=== PATIENT | female | born 1945 | race Caucasian/White ===

== ENCOUNTER → 2016-04-29 | Outpatient (CLI) | payer OTHER ==
[~2016-04-29] MED LIST: ADVIN25050 INH; ALBU1.257 NEB; ALPHTAB4 PO; BENZ100C7 PO; BIOF500C2 PO; CALC1CHW47 PO; CETI10TA84 PO; FISHOIL PO; GABA1CAP PO; GFNSR600 PO; LISI10TA PO; MULT1CHW39 PO; NEBMAC; OMEGCAP2 PO; OMEP40CA36 PO; OMEP40CA41 PO; ONE A DAY GUMMIES PO; PRED10TA PO; [UNRECOGNIZED DRUG - OTHER] PO; potassium gluconate PO
--- NOTE | 2016-04-30 13:16 | MAMMOGRAPHY REPORT ---
BILATERAL DIGITAL SCREENING MAMMOGRAM WITH CAD: 04/29/2016 TECHNIQUE: Current study was also evaluated with a Computer Aided Detection (CAD) system. Bilatera l CC and MLO views were obtained. COMPARISON: Comparison is made to exams dated: 04/29/2015 mammogram, 03/30/2013 mammogram, 04/05/2014 ma mmogram, 03/24/2011 mammogram, 03/29/2012 mammogram, and 03/21/2010 mammogram - [facility] nter. BREAST COMPOSITION: The tissue of both breasts is heterogeneously dense, which may obscure small ma sses. FINDINGS: There is a 10 mm asymmetry seen within the right lateral breast at approximately 9 to 10: 00, for which spot compression tomosynthesis views and possible breast ultrasound are recommended fo r further evaluation. The remainder of both breasts demonstrate no suspicious masses, calcifications, or areas of architec tural distortion. Small benign-appearing masses are again noted scattered within both breasts, whic h are considered benign given the multiplicity and bilaterality and likely represent cysts. A biops y marker clip is again noted in the right medial breast. IMPRESSION: ACR BI-RADS CATEGORY 0: INCOMPLETE EVALUATION: NEED ADDITIONAL IMAGING EVALUATION Right lateral breast asymmetry, for which additional imaging evaluation is recommended. The patient will be called to schedule an appointment. Approximately 10% of breast cancers are not detected with mammography. A negative mammographic repor t should not delay biopsy if a clinically suggestive mass is present. Lucie Oliveira M.D. /:04/29/2016 16:48:30 Marketing Development Specialist: Martine TANG(Judy)(M), [facility] letter sent: Addl Imaging 0 BI-RADS Code: ACR BI-RADS Category 0: Incomplete Evaluation: Need Additional Imaging Evaluation
== END | disposition home or self-care (01) ==
LOC: C.MAMM 09:11
PROVIDERS: ATTEND Internal Medicine
DX: Z12.31 Encounter for screening mammogram for malignant neoplasm of breast (principal); N64.9 Disorder of breast, unspecified

== ENCOUNTER 2016-05-03 11:01 | Inpatient (IN) | payer OTHER ==
[~2016-05-03] VITALS: Ht 162.6 cm; Wt 75.4 kg
[~2016-05-03 11:01] MED LIST changes: -ADVIN25050 INH; -ALBU1.257 NEB; -BENZ100C7 PO; -BIOF500C2 PO; -CALC1CHW47 PO; -CETI10TA84 PO; -GABA1CAP PO; -GFNSR600 PO; -MULT1CHW39 PO; -NEBMAC; -OMEGCAP2 PO; -OMEP40CA41 PO; -PRED10TA PO
[2016-05-03] MEDS ORDERED: KETOROLAC TROMETHAMINE 30 MG/ML VIAL IV STA (11:24)
[2016-05-03] MEDS ORDERED: SODIUM CHLORIDE 0.9% 1000ML 1,000 ML IV STA (11:24)
[2016-05-03] MEDS ORDERED: ALBUT/IPRATROP 3MG/0.5MG NEB 3 ML VIAL INH STA (11:24)
[2016-05-03 11:44] LABS: BASO % 0.6 %; BASO ABS # 0.03 K/uL (0-0.2); COMPLETE YES; EOS % 0.6 %; HEMATOCRIT 44.2 % (37-47); IG% 0.2 %; LYMPH % 22.4 %; LYMPH ABS # 1.15 K/uL (1.2-3.4); MEAN CELL VOLUME 89.1 fL (80-100); MEAN CORPUSCULAR HEMOGLOBIN 31.7 pg (25-34); MEAN CORPUSCULAR HGB CONC 35.5 g/dl (32-36); MEAN PLATELET VOLUME 9.2 fL (7.4-10.4); MONO % 16.2 %; PLATELET COUNT 184 K/uL (130-400); RED BLOOD COUNT 4.96 M/uL (4.2-5.4); WHITE BLOOD COUNT 5.13 K/uL (4.8-10.8)
--- NOTE | 2016-05-03 12:03 | DIAGNOSTIC IMAGING REPORT ---
SINGLE VIEW CHEST CLINICAL HISTORY: Atypical chest pain. FINDINGS: An AP, portable, upright chest radiograph is compared to study dated 02/08/2014 and correlated with chest CT dated 07/23/2010. A 2-lead cardiac pacemaker is unchanged in position and partially obscures the left mid chest. The heart is enlarged and there is atherosclerotic calcification of the thoracic aorta. The pulmonary vasculature is noncongested. Chronic interstitial thickening is unchanged. There are scattered calcified granulomas. No airspace consolidation, large pleural effusion, or pneumothorax is seen. The skeletal structures are osteopenic. The bony thorax is grossly intact. IMPRESSION: 1. Cardiomegaly and cardiac pacemaker. There is no radiographic evidence of congestive failure. 2. No airspace consolidation or pleural effusion is identified. Electronically signed by: Joshua Jensen M.D. 05/03/2016 12:02 PM Dictated Date/Time: 05/03/2016 12:00 PM
[2016-05-03] MEDS ORDERED: BIOF500C2 PO (12:22)
[2016-05-03] MEDS ORDERED: OMEP40CA41 PO (12:22)
[2016-05-03] MEDS ORDERED: OMEGCAP2 PO (12:22)
[2016-05-03] MEDS ORDERED: CALC1CHW47 PO (12:24)
[2016-05-03] MEDS ORDERED: MULT1CHW39 PO (12:24)
[2016-05-03 12:32] LABS: ALKALINE PHOSPHATASE 90 U/L (45-117); ALT/SGPT 42 U/L (12-78); AST/SGOT 49 U/L (15-37); BLOOD UREA NITROGEN 22 mg/dl (7-18); BUN/CREATININE RATIO 21.8 (10-20); CALCIUM 8.9 mg/dl (8.5-10.1); CARBON DIOXIDE 27 mmol/L (21-32); CHLORIDE 103 mmol/L (98-107); CKMB/CK RATIO 0.5 (0-3.0); GLUCOSE 112 mg/dl (70-99); POTASSIUM 3.7 mmol/L (3.5-5.1); SODIUM 139 mmol/L (136-145)
[2016-05-03 12:48] VITALS: PULSE 91; O2SAT 92
[2016-05-03] MEDS ORDERED: ALBUT/IPRATROP 3MG/0.5MG NEB 3 ML VIAL INH ONE (13:00)
--- NOTE | 2016-05-03 14:56 | EMERGENCY ROOM VISIT NOTE ---
ED Visit Note First contact with patient: 11:08 I saw this patient in conjunction with Alexey Arauz PA-C. I agree with his decision-making and treatment plan. The patient was hypoxic with an O2 saturation of 88%. She was placed on supplemental O2. She will be evaluated for further inpatient care.
[2016-05-03] MEDS ORDERED: HydrALAZINE HCL 20 MG/ML VIAL IV PRN (15:15)
[2016-05-03] MEDS ORDERED: ONDANSETRON INJ 2 MG/ML 2 ML VIAL IV PRN (15:15)
[2016-05-03] MEDS ORDERED: ACETAMINOPHEN 325 MG TAB PO PRN (15:15)
[2016-05-03] MEDS ORDERED: ALBUT/IPRATROP 3MG/0.5MG NEB 3 ML VIAL INH PRN (15:15)
[2016-05-03] MEDS ORDERED: MAGNESIUM HYDROXIDE SUSP 30 ML UDC PO PRN (15:15)
[2016-05-03] MEDS ORDERED: NITROGLYCERIN 0.4 MG SL PER TAB CHARGE SL PRN (15:15)
[2016-05-03] MEDS ORDERED: OPTIRAY 320 IV PRN (15:30)
[2016-05-03 15:57] VITALS: Ht 162.6 cm; Wt 75.4 kg
--- NOTE | 2016-05-03 16:01 | HISTORY & PHYSICAL EXAMINATION ---
DATE OF ADMISSION: 05/03/2016 CHIEF COMPLAINT: Coughing. ADMITTING DIAGNOSIS: Respiratory failure with hypoxia. HISTORY OF PRESENT ILLNESS: Ms. Sanchez is a 71-year-old female patient of Dr. Tripathi's who typically is generally healthy. She does suffer from some occasional bronchospasm. The patient has a history of V-tach and second-degree heart block followed by Dr. Elizabeth with a pacemaker implanted. Over the last 4 days, the patient has had a persistent nonproductive cough. She said she may have had some sinus symptoms associated with it, has been attempting over the counter sinus medications to help with this. The patient did contact Dr. Tripathi. The patient states that she does not bring up any mucus. She has not had any fevers. What really made her come to the hospital was she had acute coughing spell over the night, which was associated with some pain with the coughing in her chest. The patient denies any other symptoms such as fevers, sore throat, chest pain not associated with coughing, diaphoresis, shortness of breath not associated with coughing. In the Emergency Department, the patient had significant abnormal lung sounds on exam with wheezing in the bilateral lower lobes. She was 88% on room air. She did receive an hour long neb and remained persistently hypoxic on room air, according to the physician's marketing assistant retail division in the Emergency Room, although this is not documented in the vital signs. Upon my evaluation, she had a hoarse raspy voice. She had a resting tachycardia at 120, but she did receive her hour long neb and she had a nonproductive cough during my visit. PAST MEDICAL HISTORY: Is for the nonsustained V-tach second degree AV block followed by Dr. Elizabeth with a permanent pacemaker 2 lead, placed in September 2011. She has hypertension, dyslipidemia, benign positional vertigo which has not been an issue, previous history of [place] and history of bronchospasm. MEDICATIONS: Include calcium 500 a day, fish oil 2400 a day, lisinopril 10 a day, meclizine as needed, multivite once a day, omeprazole 40 a day and Proventil HFA, although she has forgotten to try it during these last few days when she has had her bronchospasm. Additionally noted about medications the fact that her lisinopril has been one of her medicines for almost 25 years and has not been associated with coughing. 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 She is . FAMILY HISTORY: Pancreatic cancer and coronary artery disease. REVIEW OF SYSTEMS: Ten systems were reviewed and are negative. The only other exception is the fact that she about a month ago had some bilateral leg pain after standing on concrete for a prolonged period of time. She has no lower extremity swelling, though right was worse than the left, but she did have, it was bilateral. PHYSICAL EXAMINATION: GENERAL: She is pleasant. VITAL SIGNS: Her temperature is 37.4, heart rate is 90-119, respiratory rate 20, BP 131/75, O2 sat as mentioned 88 on room air, 94 on 5 liters. HEENT: PERRL, EOMI. Oropharynx is without exudates or enlarged tonsils. NECK: Without lymphadenopathy. Trachea is midline. HEART: Tachycardic, regular, no murmurs. LUNGS: Have bibasilar rhonchi and wheezes. There is no focal air loss. SPINE: Nontender, no CV angle tenderness. ABDOMEN: Normoactive bowel sounds, soft, nontender, nondistended. EXTREMITIES: Without cyanosis, clubbing or edema. NEUROLOGICALLY: She is awake, alert and appropriate. Cranial nerves II through XII are intact. Equal symmetrical strength and sensation in upper and lower extremities. SKIN: Without lesions, growths, bruises or bleeding. LABORATORY DATA: Has white count of 5, H\T\H 15 and 44, platelet count 184, BUN and creatinine 22 and 1.0, bicarbonate 27. LFTs are normal and cardiac enzymes are normal. Chest x-ray shows no infiltrates and EKG shows a paced tachycardic rhythm. ASSESSMENT: A 71-year-old female here with acute hypoxic respiratory failure, likely asthmatic or bronchospastic type illness, hypoxia and tachycardia. PLAN: The patient will have CTA to rule out pulmonary embolism as one possible etiology other than that she will be treated with intravenous steroids, Solu-Medrol 40 q. 12 hours, and DuoNeb q.i.d. and q. 2 hours p.r.n. For her hypertension initially, we will continue her lisinopril with p.r.n. hydralazine. As this may be related with the tachyarrhythmia, we will interrogate her pacemaker and consult Dr. Elizabeth to evaluate the interrogated rhythms. DVT prevention will be enoxaparin unless her CT angiogram is abnormal. The patient is a full code.
--- NOTE | 2016-05-03 16:35 | DIAGNOSTIC IMAGING REPORT ---
CT ANGIOGRAM OF THE CHEST CLINICAL HISTORY: Atypical chest pain. COMPARISON STUDY: Chest CT dated 07/23/2010. Chest x-ray dated 05/03/2016. TECHNIQUE: Following the IV administration of 93 cc of Optiray 320, CT angiogram of the chest was performed from the upper abdomen to the thoracic inlet utilizing the pulmonary embolus protocol. Images are reviewed in the axial, sagittal, and coronal planes. 3-D MIPS images are created and assessed. IV contrast was administered without complication. CT DOSE: 268.54 mGy.cm FINDINGS: Thyroid: Imaged portions of the thyroid gland are normal in size and attenuation. Thoracic aorta: There is mild atherosclerotic calcification of the thoracic aorta is normal in caliber, which and demonstrates bovine variant arch anatomy. No dissection is seen. Pulmonary vasculature: The pulmonary trunk is normal in caliber. There are no filling defects identified in main, lobar, or segmental pulmonary branches to suggest pulmonary embolus. Heart: A 2-lead cardiac pacemaker is present in the left chest wall. The heart is mildly enlarged and without pericardial effusion. There are coronary artery calcifications. Lungs and pleural spaces: Evaluation of lung parenchyma is modestly degraded by respiratory motion artifact. There is no airspace consolidation or pleural effusion. Numerous calcified granulomas are identified. The trachea and central airways are clear. Mediastinum: There is no mediastinal lymphadenopathy. There are calcified mediastinal lymph nodes. Ofelia: There are calcified hilar lymph nodes. No hilar adenopathy is seen. Axillae: There is no axillary lymphadenopathy. 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 This has not significant change from 2011. 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 There are calcified hepatic and splenic granulomas. Hepatic steatosis is observed. Fatty sparing is seen adjacent to gallbladder fossa. Skeletal structures: The skeletal structures are osteopenic. No lytic or blastic bony lesions are seen. Degenerative change is noted in the thoracic spine and shoulders. IMPRESSION: 1. There is no evidence of pulmonary embolus in the main, lobar, or segmental pulmonary arteries. 2. The lungs are clear. 3. Mild cardiac enlargement and cardiac pacemaker. 4. Hepatic steatosis. 5. 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 Electronically signed by: Joshua Jensen M.D. 05/03/2016 4:33 PM Dictated Date/Time: 05/03/2016 4:27 PM
[2016-05-03 17:00] VITALS: BP 169/71; PULSE 51; TEMP 37.1; O2SAT 97
[2016-05-03] MEDS: METHYLPREDNISOLONE IV 40 MG in SYRINGE 0 ML IV SCH (17:05)
[2016-05-03 17:10] LABS: INR 1.1 (0.9-1.1); PROTHROMBIN TIME (PATIENT) 11.3 SECONDS (9.0-12.0)
[2016-05-03 19:35] VITALS: BP 159/90; PULSE 94; TEMP 37.3; O2SAT 93
[2016-05-03 20:00] VITALS: O2SAT 98
--- NOTE | 2016-05-03 20:10 | EMERGENCY ROOM VISIT NOTE ---
ED Visit Note First contact with patient: 11:08 Chief Complaint: Cough and chest tightness. History of Present Illness: Ms. Sanchez is a 71 year-old white female who ambulates into the ED complaining of chest cough and chest tightness. Historically patient reports she has a history of a implanted pacemaker due to heart block and bronchitis. She denies personal history of heart disease but does report that her father requiring quadruple bypass. Patient reports a graduate onset of a nonproductive cough that started approximately 4 days ago. Since that time his pain has gradually increased in intensity and frequency. 3 days ago she reports she started developing rib pain under her right breast with her cough and she took ibuprofen and the discomfort subsequently resolved. This morning she reports she was woken up from sleep with a severe coughing episode at approximately 4 AM, approximately 6 hours ago, and after the coughing episode she developed a midsternal chest tightness. Since that time the tightness has been constant. She rates her baseline rate at 4/10. Her pain worsens with cough and deep inspiration and becomes rated 8/10. Tightness is nonradiating. Pain that started approximately hours ago. She has not identified any other aggravating or alleviating factors related to her discomfort. She has not taken any medication since the onset of her discomfort. Associated with her cough she reports she has been having chills and diaphoresis, intermittent wheezing, dyspnea on exertion. Patient denies skin eruptions, skin color changes, upper respiratory tract symptoms, hemoptysis, orthopnea, dependent edema, previous clots, claudication, cramping, recent surgery/inactivity/extended travel, abdominal pain, nausea, vomiting, diarrhea, constipation, rectal bleeding, black/tarry stools, urinary symptoms, back/flank pain. Review of Systems: As noted above in history of present illness. All body systems were reviewed and found to be negative as noted above. Past Medical History: As previously noted, hypertension, dyslipidemia. Current Medications: Medications Dose Route/Sig Max Daily Dose Days Date Category Multivitamin Gummies Wome (Multiple Vitamins W/ Minerals) 1 Chw Chw 2 Tab PO DAILY 05/03/16 Reported Calcium Gummies (Calcium & Phosphorus W/ Vitami) 1 Chw Chw 1 Tab PO DAILY 05/03/16 Reported Vitamin C (Bioflavonoid Products) 1 Chw Chw 1 Tab PO DAILY 05/03/16 Reported Fish Oil (Goldvein-3 Fatty Acids) 1 Cap Cap 3 Cap PO DAILY 05/03/16 Reported Prilosec (Omeprazole) 40 Mg Cap 40 Mg PO DAILY 05/03/16 Reported [One A Day Gummies] 2 PO DAILY 04/28/12 Reported Prinivil (Lisinopril) 10 Mg Tab 10 Mg PO DAILY 04/12/10 Reported Allergies to Medications: Codeine. Social History: Patient is not currently employed; she feels safe in her home environment; she denies tobacco use. Physical Examination: Vital Signs: Date Time Temp Pulse Resp B/P Pulse Ox O2 Delivery O2 Flow Rate FiO2 05/03/16 15:00 112 20 128/80 94 Nasal Cannula 3.0 05/03/16 14:03 119 20 131/57 94 Mask 5.0 05/03/16 12:56 96 20 155/70 96 Mask 5.0 05/03/16 12:48 91 16 92 Nasal Cannula 2.0 05/03/16 12:18 100 05/03/16 11:44 88 Room Air 05/03/16 11:34 95 Room Air 05/03/16 11:25 109 05/03/16 11:04 37.4 65 22 159/82 91 Room Air GENERAL: 71-year-old female in mild to moderate distress due to cough, nontoxic- appearing, afebrile and hemodynamically stable. NEUROLOGICAL: Awake, alert and oriented to person, place and time. Answering questions appropriately and following commands. Normal gait. Good hand eye coordination. SKIN: Warm, dry and pink. No soft tissue eruptions or trauma noted. HEENT: Atraumatic and normocephalic. PERRLA. Sclera white and conjunctiva pink. Oral cavity moist and pink. Pharynx is nonerythematous or edematous. Speech normal. No lymphadenopathy. Trachea midline. No jugular venous distention. No carotid bruits. BACK: No tenderness over the bony spine. No CVA tenderness. THORAX: Lungs sounds are clear to auscultation and equal bilaterally with symmetrical chest wall. No wheezing, rales or rhonchi. No crepitus, tenderness , subcutaneous air or deformities noted. HEART: Regular rate and rhythm. No gallops, rubs or murmurs are appreciated. No lifts, heaves or thrills. PMI is not displaced. ABDOMEN: Flat, soft and nontender. Positive bowel sounds in all quadrants. No guarding, rigidity or organomegaly. EXTREMITIES: Moves all extremities well on command and with purpose. All distal neurovascular statuses are intact and equal bilaterally. No dependent edema or calf tenderness/cords. ED Course: Patient is assessed as noted above. Laboratory Testing: Test 05/03/16 11:30 Range/Units White Blood Count 5.13 4.8-10.8 K/uL Red Blood Count 4.96 4.2-5.4 M/uL Hemoglobin 15.7 12.0-16.0 g/dL Hematocrit 44.2 37-47 % Mean Corpuscular Volume 89.1 80-100 fL Mean Corpuscular Hemoglobin 31.7 25-34 pg Mean Corpuscular Hemoglobin Concent 35.5 32-36 g/dl Platelet Count 184 130-400 K/uL Mean Platelet Volume 9.2 7.4-10.4 fL Neutrophils (%) (Auto) 60.0 % Lymphocytes (%) (Auto) 22.4 % Monocytes (%) (Auto) 16.2 % Eosinophils (%) (Auto) 0.6 % Basophils (%) (Auto) 0.6 % Neutrophils # (Auto) 3.08 1.4-6.5 K/uL Lymphocytes # (Auto) 1.15 1.2-3.4 K/uL Monocytes # (Auto) 0.83 0.11-0.59 K/uL Eosinophils # (Auto) 0.03 0-0.5 K/uL Basophils # (Auto) 0.03 0-0.2 K/uL RDW Standard Deviation 40.3 36.4-46.3 fL RDW Coefficient of Variation 12.5 11.5-14.5 % Immature Granulocyte % (Auto) 0.2 % Immature Granulocyte # (Auto) 0.01 0.00-0.02 K/uL Sodium Level 139 136-145 mmol/L Potassium Level 3.7 3.5-5.1 mmol/L Chloride Level 103 98-107 mmol/L Carbon Dioxide Level 27 21-32 mmol/L Anion Gap 9.0 3-11 mmol/L Blood Urea Nitrogen 22 7-18 mg/dl Creatinine 1.00 0.60-1.20 mg/dl Est Creatinine Clear Calc Drug Dose 53.0 ml/min Estimated GFR () 66.6 Estimated GFR (Non- 57.4 BUN/Creatinine Ratio 21.8 10-20 Random Glucose 112 70-99 mg/dl Calcium Level 8.9 8.5-10.1 mg/dl Total Bilirubin 0.4 0.2-1 mg/dl Direct Bilirubin 0-0.2 mg/dl Aspartate Amino Transf (AST/SGOT) 49 15-37 U/L Alanine Aminotransferase (ALT/SGPT) 42 12-78 U/L Alkaline Phosphatase 90 45-117 U/L Total Creatine Kinase 154 26-192 U/L Creatine Kinase MB 0.7 0.5-3.6 ng/ml Creatine Kinase MB Ratio 0.5 0-3.0 Total Protein 8.0 6.4-8.2 gm/dl Albumin 3.5 3.4-5.0 gm/dl Lipase 216 73-393 U/L Chemistry Specimen Hemolysis Hepatitis C Antibody Screen NEG NEG Chest X-Rays: Were read by myself and the radiologist showing no acute failure, acute infiltrates, effusions or pneumothorax. Patient does have stable cardiomegaly and with pacemaker. EKG: Was read by myself and reviewed with Dr. Durant; shows an atrial sensed ventricular paced rhythm with a ventricular rate of 114 bpm. This was compared to a previous which was a sinus rhythm with a first-degree AV block. Patient was hydrated with normal saline and she received a regular and an hour- long albuterol/Atrovent nebulizer breathing treatment and 30 mg of Toradol IV for pain. Patient was reassessed multiple times during her stay in the emergency department. After her breathing treatments she had better air movement in her upper lung jolly bilaterally lower lung jolly remained diminished. I did not appreciate any wheezing, rales or rhonchi. Additionally after her breathing treatments her oxygen saturations decompensated from the low 90s to 86-88% on room air and she was subsequently placed on oxygen. Patient's case was reviewed with Dr. Durant; we agreed on diagnostic approach, treatment, disposition and plan. Patient's case was consulted with case management and Dr. Chris, [facility] for medical observation/admission. Patient was educated about tonight's findings. Clinical Impression: Acute respiratory failure. Hypoxia. Decision-Making: Initially my differential diagnosis I considered acute bronchitis, pneumonia, pulmonary embolism, acute coronary syndrome, congestive heart failure and other causes. Disposition and Plan: Patient be brought in the hospital by the [facility] hospitalist for medical observation/admission; please see their notes and orders for final disposition and plan.
[2016-05-03] MEDS: ALBUT/IPRATROP 3MG/0.5MG NEB 3 ML VIAL INH SCH (21:15)
[2016-05-03 21:16] VITALS: PULSE 97; O2SAT 95
[2016-05-03] MEDS: ENOXAPARIN 40 MG/0.4 ML SYR SC SCH (21:59)
[2016-05-04] VITALS (15 sets, daily range): BP systolic 146–171; BP diastolic 71–88; PULSE 82–99; TEMP 36.2–36.9; O2SAT 88–95
[2016-05-04 06:05] LABS: HEMATOCRIT 40.9 % (37-47); MEAN CELL VOLUME 91.7 fL (80-100); MEAN CORPUSCULAR HEMOGLOBIN 31.2 pg (25-34); MEAN PLATELET VOLUME 9.5 fL (7.4-10.4); PLATELET COUNT 192 K/uL (130-400); RED BLOOD COUNT 4.46 M/uL (4.2-5.4); WHITE BLOOD COUNT 3.45 K/uL (4.8-10.8)
[2016-05-04 06:35] LABS: BLOOD UREA NITROGEN 17 mg/dl (7-18); BUN/CREATININE RATIO 21.8 (10-20); CALCIUM 8.3 mg/dl (8.5-10.1); CARBON DIOXIDE 28 mmol/L (21-32); CHLORIDE 106 mmol/L (98-107); CREATININE 0.76 mg/dl (0.60-1.20); GLUCOSE 105 mg/dl (70-99); SODIUM 141 mmol/L (136-145)
[2016-05-04] MEDS: ALBUT/IPRATROP 3MG/0.5MG NEB 3 ML VIAL INH SCH ×4 (07:02→19:04)
[2016-05-04] MEDS ORDERED: INFLUENZA ADMINISTRATION CHARGE ONE (08:00)
[2016-05-04] MEDS ORDERED: PNEUMOCOCCAL POLYSACCHARIDES 25 MCG/0.5 ML VIAL/SYR IM. ONE (08:00)
[2016-05-04] MEDS ORDERED: PNEUMOCOCCAL ADMINISTRATION CHARGE ONE (08:00)
[2016-05-04] MEDS ORDERED: INFLUENZA VIRUS QUAD VACCINE 0.5 ML SYR IM. ONE (08:00)
[2016-05-04] MEDS: LISINOPRIL 10 MG TAB PO SCH (08:24)
[2016-05-04] MEDS: PANTOprazole SOD 40 MG TAB PO SCH (08:24)
[2016-05-04] MEDS: METHYLPREDNISOLONE IV 40 MG in SYRINGE 0 ML IV SCH ×2 (08:24→19:49)
--- NOTE | 2016-05-04 09:32 | Progress Note ---
Subjective Date of Service: May 04, 2016. (Shauna Ryder PA-C) Subjective Pt evaluation today including: conversation w/ patient, physical exam, chart review, lab review, review of studies, review of inpatient medication list Patient seen and evaluated. No acute events overnight. Patient reports marked improvement in audible wheezing and shortness of breath. Report she does have a rescue inhaler at home. However did not use that prior to presentation to the hospital. Reports last acute bronchitis was in 2013. Believe she may have a component of allergies as coughing seems to flare in fall and spring. Cough continues to be nonproductive but she denies nasal congestion, rhinorrhea , sore throat, or headache. She denies shortness of breath at rest and with exertion. Does not utilize home oxygen. (Shauna Ryder PA-C) Review of Systems Constitutional: No chills, No fever ENT: No nasal symptoms, No sore throat Respiratory: + cough, + wheezing, No dyspnea on exertion, No shortness of breath, No sputum Cardiac: No chest pain Abdomen: No constipation, No diarrhea, No nausea, No pain, No vomiting Musculoskeletal: No muscle pain, No swelling Female : No dysuria (Shauna Ryder PA-C) Medications Current Inpatient Medications Medications (Trade) Dose Ordered Sig/Emmett Route Start Time Stop Time Status Last Admin Dose Admin Enoxaparin Sodium (Lovenox Inj) 40 mg Q24H SC 05/03/16 21:00 06/02/16 20:59 05/03/16 21:59 40 MG Acetaminophen (Tylenol Tab) 650 mg Q4H PRN PO 05/03/16 15:15 06/02/16 15:14 Magnesium Hydroxide (Milk Of Magnesia Susp) 30 ml Q12H PRN PO 05/03/16 15:15 06/02/16 15:14 Ondansetron HCl (Zofran Inj) 4 mg Q6H PRN IV 05/03/16 15:15 06/02/16 15:14 Nitroglycerin (Nitrostat Tab) 0.4 mg UD PRN SL 05/03/16 15:15 06/02/16 15:14 Albuterol/ Ipratropium (Duoneb) 3 ml QIDR INH 05/03/16 16:00 06/02/16 15:59 05/04/16 07:02 3 ML Albuterol/ Ipratropium (Duoneb) 3 ml Q2H PRN INH 05/03/16 15:15 06/02/16 15:14 Pantoprazole Sodium (Protonix Tab) 40 mg DAILY PO 05/04/16 09:00 06/03/16 08:59 05/04/16 08:24 40 MG Hydralazine HCl (HydrALAZINE INJ) 10 mg Q4H PRN IV 05/03/16 15:15 06/02/16 15:14 Ioversol 125 ml 125 ml UD PRN IV 05/03/16 15:30 05/07/16 15:29 Methylprednisolone Sodium Succinate/ Syringe (Solu-Medrol IV/ Syringe) 0.64 ml @ 1.5 mls/min BID IV 05/03/16 16:30 06/02/16 16:29 05/04/16 08:24 1.5 MLS/MIN Lisinopril (Zestril Tab) 10 mg DAILY PO 05/04/16 09:00 06/03/16 08:59 05/04/16 08:24 10 MG Guaifenesin (Mucinex Contr Rel Tab) 1,200 mg Q12 PO 05/04/16 09:00 06/03/16 08:59 (Shauna Ryder, MONIKC) Objective Vital Signs Date Time Temp Pulse Resp B/P Pulse Ox O2 Delivery O2 Flow Rate FiO2 05/04/16 08:22 36.8 91 18 169/88 90 Nasal Cannula 05/04/16 07:02 90 18 92 Nasal Cannula 2.0 05/04/16 04:00 Nasal Cannula 05/04/16 03:57 36.6 82 18 146/71 95 Nasal Cannula 2.0 05/04/16 00:01 36.7 93 20 150/72 93 Nasal Cannula 2.0 05/03/16 23:59 Nasal Cannula 05/03/16 21:16 97 18 95 Nasal Cannula 2.0 05/03/16 20:00 98 Nasal Cannula 3.0 05/03/16 20:00 Nasal Cannula 3.0 98 05/03/16 19:35 37.3 94 16 159/90 93 Nasal Cannula 2.0 05/03/16 17:00 37.1 51 169/71 97 Nasal Cannula 3.0 05/03/16 16:00 110 20 130/75 94 Nasal Cannula 3.0 05/03/16 16:00 Nasal Cannula 3.0 05/03/16 15:57 Nasal Cannula 05/03/16 15:00 112 20 128/80 94 Nasal Cannula 3.0 05/03/16 14:03 119 20 131/57 94 Mask 5.0 05/03/16 12:56 96 20 155/70 96 Mask 5.0 05/03/16 12:48 91 16 92 Nasal Cannula 2.0 05/03/16 12:18 100 05/03/16 11:44 88 Room Air 05/03/16 11:34 95 Room Air 05/03/16 11:25 109 05/03/16 11:04 37.4 65 22 159/82 91 Room Air (Shauna Ryder, PA-C) Physical Exam General Appearance: WD/WN, no apparent distress Eyes: normal inspection, PERRL ENT: hearing grossly normal Neck: supple, no JVD, trachea midline Respiratory/Chest: no respiratory distress, no accessory muscle use, + wheezing (scattered wheezing on end of inspiration in all lung jolly bilat) Cardiovascular: regular rate, rhythm, no gallop, no murmur Abdomen: normal bowel sounds, non tender, soft Extremities: no pedal edema, no calf tenderness Neurologic/Psychiatric: alert, oriented x 3 Skin: normal color, warm/dry (Shauna Ryder, PA-C) Laboratory Results Last 24 Hours Test 05/03/16 11:30 05/03/16 16:50 05/03/16 21:09 05/04/16 05:10 White Blood Count 5.13 K/uL 3.45 K/uL Red Blood Count 4.96 M/uL 4.46 M/uL Hemoglobin 15.7 g/dL 13.9 g/dL Hematocrit 44.2 % 40.9 % Mean Corpuscular Volume 89.1 fL 91.7 fL Mean Corpuscular Hemoglobin 31.7 pg 31.2 pg Mean Corpuscular Hemoglobin Concent 35.5 g/dl 34.0 g/dl Platelet Count 184 K/uL 192 K/uL Mean Platelet Volume 9.2 fL 9.5 fL Neutrophils (%) (Auto) 60.0 % Lymphocytes (%) (Auto) 22.4 % Monocytes (%) (Auto) 16.2 % Eosinophils (%) (Auto) 0.6 % Basophils (%) (Auto) 0.6 % Neutrophils # (Auto) 3.08 K/uL Lymphocytes # (Auto) 1.15 K/uL Monocytes # (Auto) 0.83 K/uL Eosinophils # (Auto) 0.03 K/uL Basophils # (Auto) 0.03 K/uL RDW Standard Deviation 40.3 fL 42.0 fL RDW Coefficient of Variation 12.5 % 12.5 % Immature Granulocyte % (Auto) 0.2 % Immature Granulocyte # (Auto) 0.01 K/uL Sodium Level 139 mmol/L 141 mmol/L Potassium Level 3.7 mmol/L 4.0 mmol/L Chloride Level 103 mmol/L 106 mmol/L Carbon Dioxide Level 27 mmol/L 28 mmol/L Anion Gap 9.0 mmol/L 7.0 mmol/L Blood Urea Nitrogen 22 mg/dl 17 mg/dl Creatinine 1.00 mg/dl 0.76 mg/dl Est Creatinine Clear Calc Drug Dose 53.0 ml/min 69.7 ml/min Estimated GFR () 66.6 92.8 Estimated GFR (Non- 57.4 80.0 BUN/Creatinine Ratio 21.8 21.8 Random Glucose 112 mg/dl 105 mg/dl Calcium Level 8.9 mg/dl 8.3 mg/dl Total Bilirubin 0.4 mg/dl Direct Bilirubin mg/dl Aspartate Amino Transf (AST/SGOT) 49 U/L Alanine Aminotransferase (ALT/SGPT) 42 U/L Alkaline Phosphatase 90 U/L Total Creatine Kinase 154 U/L Creatine Kinase MB 0.7 ng/ml Creatine Kinase MB Ratio 0.5 Total Protein 8.0 gm/dl Albumin 3.5 gm/dl Lipase 216 U/L Chemistry Specimen Hemolysis Hepatitis C Antibody Screen NEG Prothrombin Time 11.3 SECONDS Prothromb Time International Ratio 1.1 Troponin I 0.030 ng/ml < 0.015 ng/ml (Shauna Ryder, MONIKC) Assessment and Plan Ms. 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) - Methylprednisolone 40 mg IV BID - Duonebs QID and Q2H PRN - Mucinex 1200 mg BID - Tessalon Perles 100 mg TID PRN - Wean O2 per nursing assessment Tachyarrhythmia S/P Pacemaker: - Pacemaker interrogation - Consult cardiology - appreciate recommendations - with any findings of interrogation HTN: - Lisinopril 10 mg daily - Hydralazine 10 mg IV PRN GERD: - Protonix 40 mg daily for omeprazole interchange DVT Prophylaxis: - Lovenox 40 mg SC daily Code Status: FULL RESUSCITATION Disposition: D/C home in 1-2 days Continued [facility] stay due to: multiple IV medications needed Discharge planning: home (Shauna Ryder, PA-C) Attending Attestation: Pt seen/examined, chart reviewed, care plan d/w GEORGINA Ryder. I agree w/ the shahid components of her documentation. Pt "feels so much better!" Less cough, less dyspnea. With that said she still can't take deep breaths. Long history of "chest colds" and recurrent bronchitis but never a dx of COPD or asthma. VSS O2 sats low 90s on NC O2 gen - NAD heart - RRR, s1, s2 lungs - airation fair at best; wheezing b/l; decreased BS bases abd - soft ext - no edema A/P: acute bronchitis - cont IV steroids aggressive pulmonary toilet I suspect she has chronic lung disease - asthma vs COPD; will need outpatient PFTs for definitive dx agree w/ Tx to med/surg pacer interrogation normal appreciate cards consult Fly NGO MD (Zachery Ngo MD)
[2016-05-04] MEDS: GUAIFENESIN 600 MG TABCR PO SCH ×2 (09:53→21:21)
--- NOTE | 2016-05-04 10:03 | Cardiology Consultation ---
Cardiology Consultation Date of Consultation: May 04, 2016. Requesting Physician: Dr. Chris Reason for Consultation: VT? Pt evaluation today including: conversation w/ patient, physical exam, lab review, review of studies, review of inpatient medication list History of Present Illness This is a very pleasant 71-year-old woman who presented with exertional difficulty and was observed to have rate-related second-degree heart block associated with her symptoms on treadmill testing. She therefore underwent dual- chamber pacemaker implantation on October 20, 2011. At her postoperative visit she was noted to have an elevated right ventricular pacing threshold, she had lead repositioning April 28, 2012. Since then she has done well with the pacemaker, she has no discomfort at the pacemaker site and has had no lightheadedness, dizziness or palpitations. She presented to the emergency room with respiratory distress, she is reported to have ventricular tachycardia although I do not see records indicating that. She has not had lightheadedness or dizziness, has not had presyncope and now feels very well after treatment of her pulmonary condition. Past Medical/Surgical History Problems 1. Allergic rhinitis (477.9) 2. Benign colonic polyp (211.3) 3. Benign paroxysmal positional vertigo (386.11) 4. Bronchospasm (519.11) 5. Cough (786.2) 6. Fibrocystic breast disease (610.1) 7. Hyperlipidemia (272.4) 8. Hypertension (401.9) 9. Impaired fasting glucose (790.21) 10. Insomnia (780.52) 11. Nonalcoholic fatty liver disease (571.8) 12. 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 Cardiac pacemaker (V45.01) (Z95.0) Social History Smoking Status: Never Smoker History of Alcohol Use: No Review of Systems Constitutional: No fever, No weakness, No weight loss Respiratory: + cough, + see HPI, + shortness of breath, No dyspnea on exertion , No wheezing Cardiac: No PND, No chest pain, No edema, No orthopnea, No palpitations Abdomen: No GI bleeding, No diarrhea, No nausea, No pain, No vomiting Female : No problem reported Neurologic: No balance problems, No numbness/tingling, No paralysis, No weakness Heme: No abnormal bleeding/bruising, No clotting problems Endo: No fatigue Skin: No problem reported All Other Systems: Reviewed and Negative Allergies Coded Allergies: Carbamazepine (Unverified Allergy, Severe, VOMITING, 05/03/16) Codeine (Verified Adverse Reaction, Unknown, FEELS LIKE SNAKES CRAWLING IN HAIR, 05/03/16) Medications Current Inpatient Medications Medications (Trade) Dose Ordered Sig/Emmett Route Start Time Stop Time Status Last Admin Dose Admin Enoxaparin Sodium (Lovenox Inj) 40 mg Q24H SC 05/03/16 21:00 06/02/16 20:59 05/03/16 21:59 40 MG Acetaminophen (Tylenol Tab) 650 mg Q4H PRN PO 05/03/16 15:15 06/02/16 15:14 Magnesium Hydroxide (Milk Of Magnesia Susp) 30 ml Q12H PRN PO 05/03/16 15:15 06/02/16 15:14 Ondansetron HCl (Zofran Inj) 4 mg Q6H PRN IV 05/03/16 15:15 06/02/16 15:14 Nitroglycerin (Nitrostat Tab) 0.4 mg UD PRN SL 05/03/16 15:15 06/02/16 15:14 Albuterol/ Ipratropium (Duoneb) 3 ml QIDR INH 05/03/16 16:00 06/02/16 15:59 05/04/16 07:02 3 ML Albuterol/ Ipratropium (Duoneb) 3 ml Q2H PRN INH 05/03/16 15:15 06/02/16 15:14 Pantoprazole Sodium (Protonix Tab) 40 mg DAILY PO 05/04/16 09:00 06/03/16 08:59 05/04/16 08:24 40 MG Hydralazine HCl (HydrALAZINE INJ) 10 mg Q4H PRN IV 05/03/16 15:15 06/02/16 15:14 Ioversol 125 ml 125 ml UD PRN IV 05/03/16 15:30 05/07/16 15:29 Methylprednisolone Sodium Succinate/ Syringe (Solu-Medrol IV/ Syringe) 0.64 ml @ 1.5 mls/min BID IV 05/03/16 16:30 06/02/16 16:29 05/04/16 08:24 1.5 MLS/MIN Lisinopril (Zestril Tab) 10 mg DAILY PO 05/04/16 09:00 06/03/16 08:59 05/04/16 08:24 10 MG Guaifenesin (Mucinex Contr Rel Tab) 1,200 mg Q12 PO 05/04/16 09:00 06/03/16 08:59 Physical Exam Vital Signs Past 12 Hours Date Time Temp Pulse Resp B/P Pulse Ox O2 Delivery O2 Flow Rate FiO2 05/04/16 08:22 36.8 91 18 169/88 90 Nasal Cannula 05/04/16 07:02 90 18 92 Nasal Cannula 2.0 05/04/16 04:00 Nasal Cannula 05/04/16 03:57 36.6 82 18 146/71 95 Nasal Cannula 2.0 05/04/16 00:01 36.7 93 20 150/72 93 Nasal Cannula 2.0 05/03/16 23:59 Nasal Cannula Constitutional: General Apperance: heathly-appearing Level of Distress: NAD Psychiatric: Mental Status: active & alert Head: normocephalic Eyes: EOM: EOMI ENMT: normal ENT inspection, hearing grossly normal Neck: supple, no masses Lungs: Respiratory effort: no dyspnea, good air movement Auscultation: breath sounds normal, no wheezing Cardiovascular: Heart Auscultation: RRR, no murmurs, no rubs, no gallops Peripheral Pulses: Bruits: none appreciated Abdomen: Bowel Sounds: normal Inspection & Palpation: soft, no tenderness, guarding & rebound, no masses Musculoskeletal: normal strength (5/5 throughout) Extremities: no edema Neurologic: Cranial Nerves: grossly intact Sensation: grossly intact Data Laboratory Results: Last 24 Hours Test 05/03/16 11:30 05/03/16 16:50 05/03/16 21:09 05/04/16 05:10 White Blood Count 5.13 K/uL 3.45 K/uL Red Blood Count 4.96 M/uL 4.46 M/uL Hemoglobin 15.7 g/dL 13.9 g/dL Hematocrit 44.2 % 40.9 % Mean Corpuscular Volume 89.1 fL 91.7 fL Mean Corpuscular Hemoglobin 31.7 pg 31.2 pg Mean Corpuscular Hemoglobin Concent 35.5 g/dl 34.0 g/dl Platelet Count 184 K/uL 192 K/uL Mean Platelet Volume 9.2 fL 9.5 fL Neutrophils (%) (Auto) 60.0 % Lymphocytes (%) (Auto) 22.4 % Monocytes (%) (Auto) 16.2 % Eosinophils (%) (Auto) 0.6 % Basophils (%) (Auto) 0.6 % Neutrophils # (Auto) 3.08 K/uL Lymphocytes # (Auto) 1.15 K/uL Monocytes # (Auto) 0.83 K/uL Eosinophils # (Auto) 0.03 K/uL Basophils # (Auto) 0.03 K/uL RDW Standard Deviation 40.3 fL 42.0 fL RDW Coefficient of Variation 12.5 % 12.5 % Immature Granulocyte % (Auto) 0.2 % Immature Granulocyte # (Auto) 0.01 K/uL Sodium Level 139 mmol/L 141 mmol/L Potassium Level 3.7 mmol/L 4.0 mmol/L Chloride Level 103 mmol/L 106 mmol/L Carbon Dioxide Level 27 mmol/L 28 mmol/L Anion Gap 9.0 mmol/L 7.0 mmol/L Blood Urea Nitrogen 22 mg/dl 17 mg/dl Creatinine 1.00 mg/dl 0.76 mg/dl Est Creatinine Clear Calc Drug Dose 53.0 ml/min 69.7 ml/min Estimated GFR () 66.6 92.8 Estimated GFR (Non- 57.4 80.0 BUN/Creatinine Ratio 21.8 21.8 Random Glucose 112 mg/dl 105 mg/dl Calcium Level 8.9 mg/dl 8.3 mg/dl Total Bilirubin 0.4 mg/dl Direct Bilirubin mg/dl Aspartate Amino Transf (AST/SGOT) 49 U/L Alanine Aminotransferase (ALT/SGPT) 42 U/L Alkaline Phosphatase 90 U/L Total Creatine Kinase 154 U/L Creatine Kinase MB 0.7 ng/ml Creatine Kinase MB Ratio 0.5 Total Protein 8.0 gm/dl Albumin 3.5 gm/dl Lipase 216 U/L Chemistry Specimen Hemolysis Hepatitis C Antibody Screen NEG Prothrombin Time 11.3 SECONDS Prothromb Time International Ratio 1.1 Troponin I 0.030 ng/ml < 0.015 ng/ml Imaging: Chest CT, no PE, lung jolly clear EKG: Sinus tachycardia with ventricular pacing appropriately Telemetry reviewed: Sinus rhythm and sinus tachycardia with appropriate ventricular function. Pacemaker interrogation demonstrates normal function, she did have 2 brief episodes of nonsustained ventricular tachycardia, 5 or 6 beats, in October and January 2016. Nothing since. Assessment & Plan #1. Shortness of breath: This appears to be pulmonary in origin, there is no evidence of this being cardiac. #2. Pacemaker function: The pacemaker's functioning normally, her heart rate was fast on admission however that was sinus tachycardia not a pacemaker function. No significant arrhythmias identified on pacemaker evaluation. #3. Nonsustained ventricular tachycardia: These were brief episodes occurring last fall, widely and these are commonly seen on pacemaker interrogation and are probably not significant. Thank you for allowing me to participate in her care.
[2016-05-04] MEDS: ENOXAPARIN 40 MG/0.4 ML SYR SC SCH (21:21)
[2016-05-05] VITALS (11 sets, daily range): BP systolic 129–182; BP diastolic 69–81; PULSE 81–116; TEMP 36.4–36.8; O2SAT 90–94
[2016-05-05 06:13] LABS: HEMATOCRIT 40.9 % (37-47); MEAN CELL VOLUME 90.7 fL (80-100); MEAN CORPUSCULAR HEMOGLOBIN 31.3 pg (25-34); MEAN CORPUSCULAR HGB CONC 34.5 g/dl (32-36); MEAN PLATELET VOLUME 9.1 fL (7.4-10.4); PLATELET COUNT 203 K/uL (130-400); RED BLOOD COUNT 4.51 M/uL (4.2-5.4); WHITE BLOOD COUNT 7.23 K/uL (4.8-10.8)
[2016-05-05 06:41] LABS: BUN/CREATININE RATIO 23.6 (10-20); CALCIUM 8.9 mg/dl (8.5-10.1); CREATININE 0.72 mg/dl (0.60-1.20); POTASSIUM 4.6 mmol/L (3.5-5.1)
[2016-05-05] MEDS: METHYLPREDNISOLONE IV 40 MG in SYRINGE 0 ML IV SCH ×3 (07:56→23:44)
[2016-05-05] MEDS: ALBUT/IPRATROP 3MG/0.5MG NEB 3 ML VIAL INH SCH ×4 (08:00→19:19)
[2016-05-05] MEDS: GUAIFENESIN 600 MG TABCR PO SCH ×2 (08:03→19:49)
[2016-05-05] MEDS: LISINOPRIL 10 MG TAB PO SCH (08:03)
[2016-05-05] MEDS: PANTOprazole SOD 40 MG TAB PO SCH (08:03)
[2016-05-05] MEDS ORDERED: NIFEdipine 30 MG CR TAB PO STA (08:21)
[2016-05-05] MEDS: BENZONATATE 100MG CAP PO PRN ×2 (10:27→19:49)
--- NOTE | 2016-05-05 11:00 | Clinical Documentation Query ---
CLINICAL DOCUMENTATION QUERY 71-y/o female who presents with acute hypoxic respiratory failure per admitting physician. This documentation has fallen off the record and unless continue to DC summary risks being lost. In your clinical opinion is this patient being managed for: ( x ) Acute hypoxic respiratory failure treated and resolved ( ) Not Agree Please clarify and document your clinical opinion in the progress notes and discharge summary. Terms such as "probable", "suspected", "likely", "questionable", "possible", or "still to be ruled out" are acceptable. IF IN AGREEMENT, YOU MUST DOCUMENT ABOVE DIAGNOSTIC STATEMENT IN DAILY PROGRESS NOTES AND DISCHARGE SUMMARY. This document is not part of the patient's record. Thank You, Benoit Ryder, RN [phone]
[2016-05-05] MEDS ORDERED: FLUTICASONE/SALMETEROL 250/50 (ADVAIR) 14 PUFF/1 INHALER INH ONE (12:30)
--- NOTE | 2016-05-05 12:30 | Progress Note ---
Subjective Date of Service: May 05, 2016. (Shauna Ryder PA-C) Subjective Pt evaluation today including: conversation w/ patient, physical exam, chart review, lab review, review of studies, review of inpatient medication list Patient seen and evaluated. No acute events overnight. Patient reports poor sleep due to coughing spells. Continues to have a nonproductive cough. Patient reports that her bronchitis in the past normally takes approximately 2 weeks to recover. She states that her chest feels tight and congestion but denies nasal symptoms. (Shauna Ryder PA-C) Review of Systems Constitutional: No chills, No fever Respiratory: + cough, No shortness of breath, No sputum Cardiac: No chest pain Abdomen: No constipation, No diarrhea, No nausea, No pain, No vomiting Musculoskeletal: No muscle pain, No swelling Female : No dysuria Skin: No rash (Shauna Ryder PA-C) Medications Current Inpatient Medications Medications (Trade) Dose Ordered Sig/Emmett Route Start Time Stop Time Status Last Admin Dose Admin Enoxaparin Sodium (Lovenox Inj) 40 mg Q24H SC 05/03/16 21:00 06/02/16 20:59 05/04/16 21:21 40 MG Acetaminophen (Tylenol Tab) 650 mg Q4H PRN PO 05/03/16 15:15 06/02/16 15:14 Magnesium Hydroxide (Milk Of Magnesia Susp) 30 ml Q12H PRN PO 05/03/16 15:15 06/02/16 15:14 05/04/16 09:52 30 ML Ondansetron HCl (Zofran Inj) 4 mg Q6H PRN IV 05/03/16 15:15 06/02/16 15:14 Nitroglycerin (Nitrostat Tab) 0.4 mg UD PRN SL 05/03/16 15:15 06/02/16 15:14 Albuterol/ Ipratropium (Duoneb) 3 ml QIDR INH 05/03/16 16:00 06/02/16 15:59 05/05/16 11:47 3 ML Albuterol/ Ipratropium (Duoneb) 3 ml Q2H PRN INH 05/03/16 15:15 06/02/16 15:14 Pantoprazole Sodium (Protonix Tab) 40 mg DAILY PO 05/04/16 09:00 06/03/16 08:59 05/05/16 08:03 40 MG Hydralazine HCl (HydrALAZINE INJ) 10 mg Q4H PRN IV 05/03/16 15:15 06/02/16 15:14 05/05/16 11:31 10 MG Ioversol (Optiray 320) 125 ml UD PRN IV 05/03/16 15:30 05/07/16 15:29 Lisinopril (Zestril Tab) 10 mg DAILY PO 05/04/16 09:00 06/03/16 08:59 05/05/16 08:03 10 MG Guaifenesin (Mucinex Contr Rel Tab) 1,200 mg Q12 PO 05/04/16 09:00 06/03/16 08:59 05/05/16 08:03 1,200 MG Benzonatate (Tessalon Perles Cap) 100 mg TID PRN PO 05/04/16 09:30 06/03/16 09:29 05/05/16 10:27 100 MG Nifedipine (Procardia Xl Tab) 30 mg QAM PO 05/06/16 08:00 06/05/16 07:59 Salmeterol Xinafoate/ Fluticasone (Advair Diskus 250/50 Inh) 1 puff BID INH 05/05/16 20:00 06/04/16 19:59 Salmeterol Xinafoate/ Fluticasone 1 puff 1 puff NOW ONCE INH 05/05/16 12:30 05/05/16 12:31 Methylprednisolone Sodium Succinate/ Syringe (Solu-Medrol IV/ Syringe) 0.64 ml @ 1.5 mls/min Q8H IV 05/05/16 16:00 06/04/16 15:59 (Shauna Ryder, MONIKC) Objective Vital Signs Date Time Temp Pulse Resp B/P Pulse Ox O2 Delivery O2 Flow Rate FiO2 05/05/16 12:15 102 129/79 05/05/16 11:47 99 16 93 Nasal Cannula 2.0 05/05/16 11:28 84 182/80 05/05/16 08:00 Nasal Cannula 2.0 05/05/16 07:25 36.8 88 16 173/81 92 Nasal Cannula 2.0 05/05/16 04:03 36.7 81 16 175/69 93 2.0 05/04/16 23:58 90 Nasal Cannula 2.0 98 05/04/16 23:24 36.9 85 20 171/86 94 Nasal Cannula 2.0 05/04/16 20:00 90 Nasal Cannula 2.0 98 05/04/16 19:04 93 16 90 Room Air 05/04/16 15:52 Nasal Cannula 2.0 05/04/16 15:30 36.2 87 20 162/84 92 Nasal Cannula 2.0 05/04/16 15:19 89 16 91 Room Air 05/04/16 13:30 36.9 95 20 160/85 88 Room Air 05/04/16 13:16 36.8 99 16 90 1.0 (Shauna Ryder PA-C) Physical Exam General Appearance: WD/WN, no apparent distress Eyes: sclerae normal ENT: hearing grossly normal Neck: supple, no JVD, trachea midline Respiratory/Chest: no respiratory distress, no accessory muscle use, + decreased breath sounds (unable to appreciate adventitious breath sounds; poor general airflow appreciated; chest seems tighter compared to previous exams) Cardiovascular: regular rate, rhythm, no gallop, no murmur Abdomen: normal bowel sounds, non tender, soft Extremities: no pedal edema, no calf tenderness Neurologic/Psychiatric: alert, oriented x 3 Skin: normal color, warm/dry (Shauna Ryder, PA-C) Laboratory Results Last 24 Hours Test 05/05/16 05:55 05/05/16 12:00 White Blood Count 7.23 K/uL Red Blood Count 4.51 M/uL Hemoglobin 14.1 g/dL Hematocrit 40.9 % Mean Corpuscular Volume 90.7 fL Mean Corpuscular Hemoglobin 31.3 pg Mean Corpuscular Hemoglobin Concent 34.5 g/dl RDW Standard Deviation 41.2 fL RDW Coefficient of Variation 12.4 % Platelet Count 203 K/uL Mean Platelet Volume 9.1 fL Sodium Level 141 mmol/L Potassium Level 4.6 mmol/L Chloride Level 106 mmol/L Carbon Dioxide Level 28 mmol/L Anion Gap 7.0 mmol/L Blood Urea Nitrogen 17 mg/dl Creatinine 0.72 mg/dl Est Creatinine Clear Calc Drug Dose 73.4 ml/min Estimated GFR () 99.0 Estimated GFR (Non- 85.4 BUN/Creatinine Ratio 23.6 Random Glucose 124 mg/dl Calcium Level 8.9 mg/dl (Shauna Ryder PA-C) Assessment and Plan Ms. Sanchez is a 71 y/o female with PMHx of Ventricular Tachycardia S/P Pacemaker, HTN, HLD, Benign Positional Vertigo, [place], and Bronchospasm who presents due to CP and non-productive cough - appears to be bronchitis Acute Hypoxic Respiratory Failure (RESOLVED)/Acute Bronchitis: Underlying Chronic Pulmonary Condition? - Repeat CXR - evaluate for new onset pneumonia - Influenza PCR - pending - Increased to Methylprednisolone 40 mg IV Q8H - Duonebs QID and Q2H PRN - Will add Advair 1 puff BID - Mucinex 1200 mg BID and Tessalon Perles 100 mg TID PRN - Continue incentive spirometry and add flutter valve Tachyarrhythmia S/P Pacemaker: - Pacemaker interrogation - Consult cardiology - pacemaker interrogation without abnormal findings; no further recommendations from cardiology HTN: - Lisinopril 10 mg daily - Nifedipine 30 mg daily - Hydralazine 10 mg IV PRN GERD: - Protonix 40 mg daily for omeprazole interchange DVT Prophylaxis: - Lovenox 40 mg SC daily Code Status: FULL RESUSCITATION Disposition: D/C home in 1-2 days - Recommend outpatient PFTs - evaluation for possible asthma, COPD, or other chronic pulmonary condition Continued [facility] stay due to: multiple IV medications needed Discharge planning: home (Shauna Ryder PA-C) Attending Attestation: Pt seen/examined, chart reviewed, care plan d/w GEORGINA Ryder. I agree w/ the shahid components of her progress note. I saw the patient immediately following a duoneb and she states "they work really well." [place] tight in her chest this AM with cough but those symptoms are now better. VSS, afebrile gen - nad neck - no JVD heart - RRR, s1, s2 lungs - minimal wheeze, focal rale with decreased BS right base, no increased WOB abd - soft ext - no edema A/P: 1. acute bronchitis vs acute exacerbation of an undiagnosed, underlying chronic lung disease (ie asthma or COPD) - ongoing symptoms. repeat cxr, exclude pneumonia flu test reasonable to increase steroids to q8h dosing pulmonary toilet 2. uncontrolled HTN - likely due to steroids nifedipine 30mg daily Fly NGO MD (Zachery Ngo MD)
--- NOTE | 2016-05-05 13:04 | DIAGNOSTIC IMAGING REPORT ---
CHEST 2 VIEWS ROUTINE CLINICAL HISTORY: Dyspnea dyspnea COMPARISON STUDY: 05/03/2016 FINDINGS: Permanent bipolar cardiac pacemaker. Lungs remain clear. Several calcified granulomas scattered throughout both hemithoraces. IMPRESSION: No acute process. No change from the prior exam. Electronically signed by: Regan Miguel M.D. 05/05/2016 1:03 PM Dictated Date/Time: 05/05/2016 1:02 PM
[2016-05-05 13:57] LABS: INFLUENZA A PCR Neg for Influ A (NEG); INFLUENZA B PCR Neg for Influ B (NEG)
[2016-05-05] MEDS: FLUTICASONE/SALMETEROL 250/50 (ADVAIR) 14 PUFF/1 INHALER INH SCH (19:48)
[2016-05-05] MEDS: ENOXAPARIN 40 MG/0.4 ML SYR SC SCH (19:49)
[2016-05-06] MEDS: BENZONATATE 100MG CAP PO PRN ×2 (03:35→07:35)
[2016-05-06 03:36] VITALS: BP 135/74; PULSE 79; TEMP 36.5; O2SAT 91
[2016-05-06 05:41] LABS: HEMATOCRIT 44.4 % (37-47); MEAN CELL VOLUME 89.2 fL (80-100); MEAN CORPUSCULAR HEMOGLOBIN 30.5 pg (25-34); MEAN CORPUSCULAR HGB CONC 34.2 g/dl (32-36); MEAN PLATELET VOLUME 10.1 fL (7.4-10.4); PLATELET COUNT 216 K/uL (130-400); RED BLOOD COUNT 4.98 M/uL (4.2-5.4); WHITE BLOOD COUNT 10.74 K/uL (4.8-10.8)
[2016-05-06 06:10] LABS: BUN/CREATININE RATIO 21.5 (10-20); CALCIUM 9.1 mg/dl (8.5-10.1); CREATININE 0.84 mg/dl (0.60-1.20); POTASSIUM 3.9 mmol/L (3.5-5.1)
[2016-05-06 07:16] VITALS: PULSE 83; O2SAT 93
[2016-05-06] MEDS: ALBUT/IPRATROP 3MG/0.5MG NEB 3 ML VIAL INH SCH ×2 (07:16→11:16)
[2016-05-06 07:18] VITALS: BP 156/73; PULSE 85; TEMP 36.8; O2SAT 90
[2016-05-06] MEDS: FLUTICASONE/SALMETEROL 250/50 (ADVAIR) 14 PUFF/1 INHALER INH SCH (07:34)
[2016-05-06] MEDS: PANTOprazole SOD 40 MG TAB PO SCH (07:34)
[2016-05-06] MEDS: LISINOPRIL 10 MG TAB PO SCH (07:34)
[2016-05-06] MEDS: METHYLPREDNISOLONE IV 40 MG in SYRINGE 0 ML IV SCH (07:34)
[2016-05-06] MEDS: GUAIFENESIN 600 MG TABCR PO SCH (07:36)
[2016-05-06] MEDS ORDERED: NIFEdipine 30 MG CR TAB PO SCH (08:00)
[2016-05-06 08:30] VITALS: O2SAT 90
[2016-05-06] MEDS ORDERED: PRED10TA PO (10:17)
[2016-05-06] MEDS ORDERED: GFNSR600 PO (10:17)
[2016-05-06] MEDS ORDERED: BENZ100C7 PO (10:17)
[2016-05-06] MEDS ORDERED: ADVIN25050 INH (10:17)
[2016-05-06] MEDS ORDERED: NEBMAC (10:22)
[2016-05-06] MEDS ORDERED: ALBU1.257 NEB (10:22)
[2016-05-06] MEDS ORDERED: LISI10TA PO (10:37)
--- NOTE | 2016-05-06 10:46 | Discharge Instructions ---
Discharge Instructions Date of Service May 06, 2016. (Shauna Ryder PA-C) Admission Reason for Admission: Acute Respiratory Failure With Hypoxia (Shauna Ryder PA-C) Discharge Discharge Diagnosis / Problem: Acute Bronchitis (Shauna Ryder PA-C) Discharge Goals Goal(s): Decrease discomfort, Improve function, Improve disease control (Shauna Ryder PA-C) Activity Recommendations Activity Limitations: resume your previous activity . (Shauna Ryder PA-C) Instructions / Follow-Up Instructions / Follow-Up Acute Bronchitis: - You were admitted due to an acute bronchitis. Given the frequency of your bronchitis we suspect he may have an underlining asthma or chronic lung condition. - We will provide you with a prescription for a nebulizer machine. This can be filled at [facility] or any place that carries medical appointment. - You will also receive a prescription for albuterol nebulizers to use with this machine. -- This medication is the same that you have in your rescue inhaler at home. -- You may continue to use your rescue inhaler at home or your nebulizer as needed for shortness of breath or wheezing - We have started you on an inhaler called Advair. Take one 1 puff twice a day -- This medication is not rescue inhaler. If you develop increased shortness of breath please use your rescue inhaler or nebulizer. -- Please ensure mouth with water after use - You'll be provided with a prescription for prednisone and will be tapered over the next few days. -- Take prednisone 60 mg daily starting tomorrow (05/07), then 50 mg daily 1 day then 40 mg daily 1 day then 30 mg daily 1 day then 20 mg daily 1 day then 10 mg daily 1 day. - You will be provided with a prescription for Tessalon Perles that you may use up to 3 times a day as needed. - Continue to use her flutter valve and incentive spirometer to help open up your airways Pacemaker: - During admission your pacemaker was interrogated and no abnormalities were found. HTN: - During admission your blood pressures were elevated. This may be because of the prednisone however we would like to see better control. - We are going to increase your lisinopril to 20 mg daily. Your family doctor may want to adjust in the future. Follow-Up: - Our nurse navigator will schedule you with a pulmonary (lung specialist) appointment. We recommend that you get pulmonary function testing in the near future per their discretion. As we do suspect that you have underlining asthma or an asthma-like condition - Please follow-up with your family doctor in 7-10 days. Please discuss the increased lisinopril, they may choose to adjust this dose at a later time. (Shauna Ryder PA-C) Current Hospital Diet Patient's current hospital diet: AHA Diet (Heart Healthy) (Shauna Ryder PA-C) Discharge Diet Recommended Diet: AHA Diet (Heart Healthy) (Shauna Ryder PA-C) Pending Studies Studies pending at discharge: no (Shauna Ryder PA-C) Medical Emergencies . Who to Call and When: Medical Emergencies: If at any time you feel your situation is an emergency, please call 911 immediately. . (Shauna Ryder PA-C) Non-Emergent Contact Non-Emergency issues call your: Primary Care Provider Call Non-Emergent contact if: you have a fever, you have any medication questions . (Shauna Ryder PA-C) . "Provider Documentation" section prepared by Shauna Ryder. (Shauna Ryder PA-C) Attending Attestation: Pt seen/examined and patient care plan d/w GEORGINA Ryder on day of discharge. I agree with her discharge instructions as outlined. Zachery Ngo MD (Zachery Ngo MD) VTE Core Measure Inpt VTE Proph given/why not?: Enoxaparin (Lovenox)SQ (Shauna Ryder PA-C)
[2016-05-06 11:16] VITALS: PULSE 102; O2SAT 93
[2016-05-06 11:58] VITALS: BP 156/73; PULSE 102; TEMP 36.8; O2SAT 93
--- NOTE | 2016-05-06 14:16 | Discharge Summary ---
Discharge Summary Date of Service May 06, 2016. (Shauna Ryder PA-C) Discharge Summary Admission Date: May 03, 2016 at 15:13 Discharge Date: May 06, 2016 Discharge Disposition: Home Principal Diagnosis: Acute Respiratory Failure with Hypoxia due to Acute Bronchitis Problems/Secondary Diagnoses: Medical Problems: (1) Benign positional vertigo (2) Dyslipidemia (3) Hypertension (4) [place] (nonalcoholic steatohepatitis) (5) Second degree AV block (6) Ventricular tachycardia, non-sustained Surgical Problems: (1) Pacemaker Immunizations: Have You Had Influenza Vaccine: Unknown History of Tetanus Vaccine?: Unknown History of Pneumococcal: Unknown History of Hepatitis B Vaccine: Unknown Procedures: 1. CT ANGIOGRAM OF THE CHEST CLINICAL HISTORY: Atypical chest pain. COMPARISON STUDY: Chest CT dated 07/23/2010. Chest x-ray dated 05/03/2016. TECHNIQUE: Following the IV administration of 93 cc of Optiray 320, CT angiogram of the chest was performed from the upper abdomen to the thoracic inlet utilizing the pulmonary embolus protocol. Images are reviewed in the axial, sagittal, and coronal planes. 3-D MIPS images are created and assessed. IV contrast was administered without complication. CT DOSE: 268.54 mGy.cm FINDINGS: Thyroid: Imaged portions of the thyroid gland are normal in size and attenuation. Thoracic aorta: There is mild atherosclerotic calcification of the thoracic aorta is normal in caliber, which and demonstrates bovine variant arch anatomy. No dissection is seen. Pulmonary vasculature: The pulmonary trunk is normal in caliber. There are no filling defects identified in main, lobar, or segmental pulmonary branches to suggest pulmonary embolus. Heart: A 2-lead cardiac pacemaker is present in the left chest wall. The heart is mildly enlarged and without pericardial effusion. There are coronary artery calcifications. Lungs and pleural spaces: Evaluation of lung parenchyma is modestly degraded by respiratory motion artifact. There is no airspace consolidation or pleural effusion. Numerous calcified granulomas are identified. The trachea and central airways are clear. Mediastinum: There is no mediastinal lymphadenopathy. There are calcified mediastinal lymph nodes. Ofelia: There are calcified hilar lymph nodes. No hilar adenopathy is seen. Axillae: There is no axillary lymphadenopathy. 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 This has not significant change from 2011. 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 There are calcified hepatic and splenic granulomas. Hepatic steatosis is observed. Fatty sparing is seen adjacent to gallbladder fossa. Skeletal structures: The skeletal structures are osteopenic. No lytic or blastic bony lesions are seen. Degenerative change is noted in the thoracic spine and shoulders. IMPRESSION: 1. There is no evidence of pulmonary embolus in the main, lobar, or segmental pulmonary arteries. 2. The lungs are clear. 3. Mild cardiac enlargement and cardiac pacemaker. 4. Hepatic steatosis. 5. 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 2. CHEST 2 VIEWS ROUTINE CLINICAL HISTORY: Dyspnea dyspnea COMPARISON STUDY: 05/03/2016 FINDINGS: Permanent bipolar cardiac pacemaker. Lungs remain clear. Several calcified granulomas scattered throughout both hemithoraces. IMPRESSION: No acute process. No change from the prior exam. Consultations: 1. Cardiology - Pacemaker interrogation and interpretation - no arrhythmias identified (Shauna Ryder, PAPitoC) Problems/Secondary Diagnoses: suspected asthma or other chronic lung disease Procedures: pacemaker interrogation - normal device function (Zachery Ngo MD) Medication Reconciliation New Medications: Albuterol Sulfate (Albuterol Sulfate) 1.25 Mg/3 Ml Neb 1 VIAL NEB Q4 PRN for SOB/Wheezing for 15 Days, ML Nebulizer Machine (Home Use) (Nebulizer Machine (Home Use) ) Mis 1 EA N/A UD, #1 Prednisone Tab (Prednisone) 10 Mg Tab 10 MG PO DAILY, #21 TAB Take 60 mg x 1 day then 50 mg x 1 day then 40 mg x 1 day then 30 mg x 1 day then 20 mg x 1 day then 10 mg x 1 day Benzonatate (Benzonatate) 100 Mg Cap 100 MG PO TID PRN for Cough for 7 Days, CAP Fluticasone Prop/Salmeterol (Advair Diskus 250-50 Mcg/Dose) 14 Puff/1 Inhaler Aerp 1 PUFF INH BID for 30 Days Please rinse mouth with water after use. Guaifenesin Ext Rel (Mucinex Ext Rel) 600 Mg Tabcr 1200 MG PO Q12 for 7 Days Changed Medications: Lisinopril (Prinivil) 10 Mg Tab 20 MG PO DAILY for 30 Days, 0 Refills (Changed from: 10 MG) Continued Medications: Bioflavonoid Products (Vitamin C) 1 Chw Chw 1 TAB PO DAILY Calcium & Phosphorus W/ Vitami (Calcium Gummies) 1 Chw Chw 1 TAB PO DAILY Multiple Vitamins W/ Minerals (Multivitamin Gummies Wome) 1 Chw Chw 2 TAB PO DAILY Gardner-3 Fatty Acids (Fish Oil) 1 Cap Cap 3 CAP PO DAILY Omeprazole (Prilosec) 40 Mg Cap 40 MG PO DAILY, CAP [One A Day Gummies] () 2 PO DAILY Discharge Exam Review of Systems: Constitutional: No chills, No fever ENT: No nasal symptoms, No sore throat, No trouble swallowing Respiratory: + cough, No dyspnea at rest, No dyspnea on exertion, No sputum Cardiovascular: No chest pain Abdomen: No constipation, No diarrhea, No nausea, No pain, No vomiting Musculoskeletal: No calf pain, No swelling Genitourinary - Female: No dysuria, No urinary frequency Hematologic / Lymphatic: No abnormal bleeding/bruising, No clotting problems Integumentary: No rash Physical Exam: General Appearance: WD/WN, no apparent distress Eyes: sclerae normal ENT: hearing grossly normal Neck: supple, no adenopathy, no JVD, trachea midline Respiratory/Chest: lungs clear, no respiratory distress, no accessory muscle use, + decreased breath sounds Cardiovascular: regular rate, rhythm, no gallop, no murmur Abdomen / GI: normal bowel sounds, non tender, soft Extremities: no calf tenderness, no pedal edema Neurologic/Psychiatric: alert, oriented x 3 Skin: normal color, warm/dry (Shauna Ryder, MONIKC) Hospital Course ADMISSION: Ms. Sanchez is a 71-year-old female patient of Dr. Tripathi's who typically is generally healthy. She does suffer from some occasional bronchospasm. The patient has a history of V-tach and second-degree heart block followed by Dr. Elizabeth with a pacemaker implanted. Over the last 4 days , the patient has had a persistent nonproductive cough. She said she may have had some sinus symptoms associated with it, has been attempting over the counter sinus medications to help with this. The patient did contact Dr. Tripathi. The patient states that she does not bring up any mucus. She has not had any fevers. What really made her come to the hospital was she had acute coughing spell over the night, which was associated with some pain with the coughing in her chest. The patient denies any other symptoms such as fevers , sore throat, chest pain not associated with coughing, diaphoresis, shortness of breath not associated with coughing. In the Emergency Department, the patient had significant abnormal lung sounds on exam with wheezing in the bilateral lower lobes. She was 88% on room air. She did receive an hour long neb and remained persistently hypoxic on room air, according to the physician's mailing machine assistant in the Emergency Room, although this is not documented in the vital signs. Upon my evaluation, she had a hoarse raspy voice. She had a resting tachycardia at 120, but she did receive her hour long neb and she had a nonproductive cough during my visit. HOSPITAL COURSE: Ms. Sanchez was admitted due to an acute hypoxic episode. Initial CXR did not reveal evidence of consolidation suggesting a pneumonia. She underwent a CTA which did not show pulmonary embolism. Please see procedure section for official report. Influenza PCR was negative. Pacemaker interrogated with no arrhythmias appreciated. She remained afebrile, without leukocytosis, and improved with nebulizer treatments. She was treated for an acute bronchitis. Upon further discussion with the patient, she reports that over the past several years she has noted to have developed seasonal allergies. She also reports "chest colds" that have been increasing in frequency over the past several years and taking longer to resolve per patient report. She has never been officially diagnosed with asthma, COPD, or any other chronic pulmonary conditions. Patient markedly improved with DuoNeb treatments and IV steroids. She has had no further hypoxic episodes and has been adequately oxygenating on room air. Due to suspicion of an underlying pulmonary condition , case management has established a pulmonary appointment with Sravani Navarrete PA-C on 05/14/2016 at 9 AM. Patient may benefit from pulmonary function testing after acute symptoms have resolved to establish an underlying diagnosis. She received methylprednisolone 40 mg IV Q8H with conversion to prednisone po taper. A prescription was provided for prednisone 60 mg daily 1 day with instructions to taper by 10 mg each day then stop. Patient was provided a prescription for nebulizer machine and albuterol nebulizers. Patient was instructed to continue her albuterol inhaler as needed. She reports that she can use this inhaler multiple times a week during acute flares but denies using this prior to this admission. She was also initiated on Advair 1 puff BID and was provided a prescription to continue this. She was encouraged to use incentive spirometry and flutter valve. Routine vital signs revealed elevated blood pressure readings which may be from uncontrolled hypertension versus steroid use. She reports that she has been on lisinopril for many years and has not had any recent dosage adjustment. We have increased her lisinopril to 20 mg daily and advised her to discuss this with her family doctor for further continuation. DVT prophylaxis was instituted with Lovenox 40 mg SC daily. Patient is a full code. She is optimal for discharge home with PCP follow-up in 7-10 days in pulmonary follow-up for possible PFTs after acute symptoms resolve. Total Time Spent: Greater than 30 minutes This includes examination of the patient, discharge planning, medication reconciliation, and communication with other providers. (Shauna Ryder PA-C) Attending Attestation: Pt seen & examined; care plan d/w GEORGINA Ryder on day of discharge. I agree with the shahid components of her discharge summary. 71yo female with long-standing h/o recurrent episodes of wheezing/bronchitis but no formal diagnosis of asthma or COPD who presented with acute hypoxic respiratory failure due to bronchitis. Imaging showed no evidence of complicating pneumonia. She was treated with nebs, oxygen, and steroids with gradual improvement in all pulmonary symptoms. She will d/c home on a steroid taper. Prescriptions for a neb machine and appropriate bronchodilators were given. She was started on advair as she reports frequent use of albuterol and has at least twice yearly episodes of bronchitis. Establishing with a roper operator and need for PFTs was discussed. Discharge exam: gen - NAD heart - RRR, s1, s2 lungs - scant wheeze (end expiratory) b/l abd - soft, NT ext - no edema Zachery Ngo MD (Zachery Ngo MD) Discharge Instructions Please refer to the electronic Patient Visit Report (Discharge Instructions) for additional information. (Shauna Ryder PA-C) Additional Copies To Magnus Tripathi M.D.; Sravani Navarrete PA-C
== END 2016-05-06 13:00 | disposition home or self-care (01) | DRG 189 ==
LOC: ENRESERVDT → ENRESERVTM → C.EDB 11:03 → C.2T 15:13 → C.4E 05-04 13:35
PROVIDERS: ADMIT Internal Medicine; ATTEND Internal Medicine
DX: J96.01 Acute respiratory failure with hypoxia (principal); I47.2 Ventricular tachycardia; J44.0 Chronic obstructive pulmonary disease with (acute) lower respiratory infection; E78.5 Hyperlipidemia, unspecified; J20.9 Acute bronchitis, unspecified; I10 Essential (primary) hypertension; K21.9 Gastro-esophageal reflux disease without esophagitis; J45.909 Unspecified asthma, uncomplicated; H81.10 Benign paroxysmal vertigo, unspecified ear; K75.81 Nonalcoholic steatohepatitis (NASH); I44.1 Atrioventricular block, second degree; T38.0X5A Adverse effect of glucocorticoids and synthetic analogues, initial encounter; Y92.230 Patient room in hospital as the place of occurrence of the external cause; Z79.899 Other long term (current) drug therapy; Z95.0 Presence of cardiac pacemaker; Z87.09 Personal history of other diseases of the respiratory system

== ENCOUNTER → 2016-05-22 | Outpatient (CLI) | payer OTHER ==
[~2016-05-22] MED LIST changes: +ADVIN25050 INH; +ALBU1.257 NEB; -ALPHTAB4 PO; +BENZ100C7 PO; +BIOF500C2 PO; +CALC1CHW47 PO; +CETI10TA84 PO; -FISHOIL PO; +GABA1CAP PO; +GFNSR600 PO; +MULT1CHW39 PO; +OMEGCAP2 PO; -OMEP40CA36 PO; +OMEP40CA41 PO; +PRED10TA PO; -[UNRECOGNIZED DRUG - OTHER] PO; -potassium gluconate PO
--- NOTE | 2016-05-22 13:11 | MAMMOGRAPHY REPORT ---
UNILATERAL RIGHT DIGITAL DIAGNOSTIC MAMMOGRAM TOMOSYNTHESIS AND TARGETED RIGHT ULTRASOUND: 05/22/2016 CLINICAL HISTORY: Callback from screening mammogram for right breast asymmetry. TECHNIQUE: Breast tomosynthesis in addition to standard 2D mammography was performed. Right CC and MLO spot compression 2-D and tomosynthesis images were obtained. COMPARISON: Comparison is made to exams dated: 04/29/2016 mammogram, 04/29/2015 mammogram, 04/05/2014 ma mmogram, 03/30/2013 mammogram, 03/29/2012 mammogram, and 03/24/2011 mammogram - [facility]. BREAST COMPOSITION: The tissue of the right breast is heterogeneously dense, which may obscure smal l masses. FINDINGS: The previously described asymmetry seen within the right lateral breast on the cc view ef faces to a baseline appearance on the additional views. An oval circumscribed benign-appearing 5 mm mass is seen within this region which is stable compared to prior exams including the 2013 exam and likely represents a cyst; this mass likely contributed to some of the asymmetry, while the remainde r of the asymmetry effaces and is felt to represent normal overlapping fibroglandular tissue. A few other round/oval circumscribed benign-appearing masses are seen within the right breast on the cristina tional views, which appear similar to prior exams and likely represent cysts. Targeted ultrasound was performed of the right upper outer quadrant of the region of the mammographi c asymmetry. No suspicious masses or other suspicious sonographic abnormalities are evident. In th e right breast at 9:00, 2 cm from the nipple, there is an oval anechoic circumscribed 6 x 4 mm mass, consistent with a benign cyst. There is also an adjacent oval anechoic circumscribed 4 x 3 mm mass with a thin internal septation, also consistent with a benign cyst. IMPRESSION: ACR BI-RADS CATEGORY 2: BENIGN, TARGETED ULTRASOUND ACR BI-RADS CATEGORY 2: BENIGN The right lateral breast asymmetry effaces to a baseline appearance on the additional views, without corresponding suspicious sonographic abnormality evident. The asymmetry is benign and consistent w ith normal overlapping fibroglandular tissue and an associated stable benign cyst. There is no mammographic or targeted sonographic evidence of malignancy. A 1 year screening mammogra m is recommended. The patient has been verbally notified of the results. Approximately 10% of breast cancers are not detected with mammography. A negative mammographic repor t should not delay biopsy if a clinically suggestive mass is present. Lucie Oliveira M.D. ah/:05/22/2016 11:27:44 Computer Equipment Repairer: Martine Mckinley, [facility] letter sent: Normal 1/2 BI-RADS Code: ACR BI-RADS Category 2: Benign Ultrasound BI-RADS: ACR BI-RADS Category 2: Benign
== END | disposition home or self-care (01) ==
LOC: C.MAMM 10:03
PROVIDERS: ATTEND Internal Medicine
DX: N64.89 Other specified disorders of breast (principal)

== ENCOUNTER 2016-06-13 08:36 | Emergency (ER) | payer OTHER ==
[~2016-06-13] VITALS: Ht 162.6 cm; Wt 77.0 kg
[~2016-06-13 08:36] MED LIST changes: -ALBU1.257 NEB; -CETI10TA84 PO; -GABA1CAP PO
[2016-06-13 08:39] VITALS: TEMP 36.7; Ht 162.6 cm; Wt 77.0 kg
[2016-06-13] MEDS ORDERED: CETI10TA84 PO (09:12)
--- NOTE | 2016-06-13 10:37 | DIAGNOSTIC IMAGING REPORT ---
ULTRASOUND venous Doppler ultrasound left upper extremity CLINICAL HISTORY: Left arm and hand pain. History of IV site. COMPARISON STUDY: No previous studies for comparison. FINDINGS: No intraluminal thrombus was visualized. The internal jugular, subclavian, axillary, cephalic, brachial, basilic, radial, and ulnar veins were patent. IMPRESSION: No evidence of left upper extremity DVT. Electronically signed by: Royer Soares M.D. 06/13/2016 10:35 AM Dictated Date/Time: 06/13/2016 10:34 AM
--- NOTE | 2016-06-13 10:58 | DIAGNOSTIC IMAGING REPORT ---
LEFT WRIST MIN 3 VIEWS ROUTINE CLINICAL HISTORY: Left wrist pain. COMPARISON: None. DISCUSSION: No fractures are visualized. There are no erosive or destructive changes. There are mild osteoarthritic changes the level of the first carpal metacarpal joint. The bones are mildly osteopenic. IMPRESSION: No fractures. No erosive or destructive changes. Electronically signed by: Royer Soares M.D. 06/13/2016 10:56 AM Dictated Date/Time: 06/13/2016 10:55 AM
--- NOTE | 2016-06-13 11:14 | EMERGENCY ROOM VISIT NOTE ---
ED Visit Note First contact with patient: 08:54 I have personally evaluated and examined this patient. I agree with assessment and plan of Michael Guevara PA-C. Patient with possible complex regional pain syndrome secondary to IV start and subsequent phlebitis. Starting gabapentin 100 mg 3 times a day and follow-up with pain clinic.
[2016-06-13] MEDS ORDERED: GABA1CAP PO (11:21)
--- NOTE | 2016-06-13 11:22 | EMERGENCY ROOM VISIT NOTE ---
ED Visit Note First contact with patient: 08:54 CHIEF COMPLAINT: Left hand pain and burning 1 month HISTORY OF PRESENT ILLNESS: Patient is a [id number] 71-year-old white female who presents to emergency department for evaluation of pain in her left hand that has been present for a month. Patient was hospitalized here one month ago for respiratory failure/bronchitis. She had an IV site in the dorsal aspect of her left wrist. She states that it has been "bothering me" since leaving the hospital. She does admit that she was washing windows recently. She describes a burning pain. It is located in the dorsal aspect of the wrist/ hand. It does not involve the fingers. There is no radiation up her forearm. She describes that it is very hypersensitive and she cannot tolerate have clothing or bed sheets over top of her hand. There has never been any swelling , redness or discoloration. She has tried applying topical ointments including antibiotic ointment and zinc oxide to the area. She denies any weakness. There was no other trauma. REVIEW OF SYSTEMS: Review of systems as per HPI. All other systems reviewed were negative. 10 systems reviewed. PMH: Electronic medical records are reviewed and summarized as above/below. See Problem List. SOCIAL HISTORY: Patient lives at home with her son. Nonsmoker. PHYSICAL EXAM: Vital Signs: Reviewed Nurse's notes. CONSTITUTIONAL: Patient is a pleasant, well-appearing 71-year-old white female who is awake and alert and in no acute distress. MUSCULOSKELETAL: Examination of the left hand does not demonstrate any obvious deformity. There is no bony tenderness to palpation over the distal radius or the ulna, or edema carpal/metacarpal distribution. Wrist and finger range of motion are full. Skin is intact without erythema or rashes. There are no palpable cords noted. No lymphangitic streaking. Capillary refills less than 2 seconds. Radial and ulnar pulses are easily palpable. Sensation to light touch is intact over the left upper extremity. 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 EMERGENCY DEPARTMENT COURSE: The patient was seen and assessed as above. She presents with paresthesias/neuropathic-like pain in the left upper extremity after having an IV placed about a month ago. Differential diagnoses entertained included cellulitis, superficial thrombophlebitis, DVT, compartment syndrome, complex regional pain syndrome, arthritis, gouty arthropathy, peripheral neuropathy, cervical radiculopathy, among others. X-rays of the left wrist were obtained and were negative for acute pathology. Ultrasound of the left upper extremity did not demonstrate DVT. Patient was seen and reviewed with attending physician. He recommended initiation of gabapentin and follow-up with [facility]. This was discussed with the patient and she was in agreement. She was discharged home in good condition. LEFT WRIST MIN 3 VIEWS ROUTINE CLINICAL HISTORY: Left wrist pain. COMPARISON: None. DISCUSSION: No fractures are visualized. There are no erosive or destructive changes. There are mild osteoarthritic changes the level of the first carpal metacarpal joint. The bones are mildly osteopenic. IMPRESSION: No fractures. No erosive or destructive changes. ULTRASOUND venous Doppler ultrasound left upper extremity CLINICAL HISTORY: Left arm and hand pain. History of IV site. COMPARISON STUDY: No previous studies for comparison. FINDINGS: No intraluminal thrombus was visualized. The internal jugular, subclavian, axillary, cephalic, brachial, basilic, radial, and ulnar veins were patent. IMPRESSION: No evidence of left upper extremity DVT. Problem List Medical Problems: (1) Acute respiratory failure with hypoxia Status: Resolved (2) Benign positional vertigo Status: Chronic (3) Dyslipidemia Status: Chronic (4) Hypertension Status: Chronic (5) [place] (nonalcoholic steatohepatitis) Status: Chronic (6) Second degree AV block Status: Resolved (7) Ventricular tachycardia, non-sustained Status: Resolved Surgical Problems: (1) Pacemaker Status: Chronic Current/Historical Medications Scheduled Calcium & Phosphorus W/ Vitami (Calcium Gummies), 1 TAB PO DAILY Cetirizine (Zyrtec), 10 MG PO QAM Gabapentin (Neurontin), 1 CAP PO TID Lisinopril (Prinivil), 20 MG PO DAILY Multiple Vitamins W/ Minerals (Multivitamin Gummies [place]), 2 TAB PO DAILY [place]-3 Fatty Acids (Fish Oil), 3 CAP PO DAILY Omeprazole (Prilosec), 40 MG PO Q2D Allergies Coded Allergies: Carbamazepine (Unverified Allergy, Severe, VOMITING, 06/13/16) Codeine (Verified Adverse Reaction, Unknown, FEELS LIKE SNAKES CRAWLING IN HAIR, 06/13/16) Vital Signs Date Time Temp Pulse Resp B/P Pulse Ox O2 Delivery O2 Flow Rate FiO2 06/13/16 11:30 107 18 142/93 93 Room Air 06/13/16 10:52 82 18 159/82 96 Room Air 06/13/16 08:39 36.7 113 16 183/84 95 Room Air Departure Information Impression Primary Impression: Left hand paresthesia Prescriptions Gabapentin (NEURONTIN) 100 Mg Cap 1 CAP PO TID for 30 Days, #90 CAP Prov: Patricia Guevara PA 06/13/16 Referrals Magnus Tripathi M.D. (PCP) Upendra. Osuna M.D. Patient Instructions My [facility] Additional Instructions Gabapentin (Neurontin) 100mg : Take 1 tablet 3 times daily. Ibuprofen(Motrin, Advil) may be used for fever or pain. Use 600mg every six hours as needed. Take with food. Avoid using more than 2400mg in a 24 hour period. Do not use 2400mg per day for more than three consecutive days without physician direction. Prolonged inappropriate use can lead to stomach upset or ulcers. This medication can be taken if you need to drive, work, or perform activities which may be dangerous when taking narcotic pain medication. (AND/OR) Acetaminophen(Tylenol) may be used for fever or pain. Use 1000mg every six hours as needed. Avoid using more than 3000mg in a 24 hour period. This medication can be taken if you need to drive, work, or perform activities which may be dangerous when taking narcotic pain medication. Activity as tolerated. Continue current medications. Return to the ER immediately for any numbness, tingling, severe pain, extreme swelling in the extremity or as needed. Follow up with your primary care physician and with [facility] for further care and evaluation.
[2016-06-13 11:30] VITALS: BP 142/93; PULSE 107; O2SAT 93
== END 2016-06-13 11:30 | disposition home or self-care (01) ==
LOC: C.EDB 08:37 → C.EDA 11:30
DX: R20.2 Paresthesia of skin (principal); I10 Essential (primary) hypertension; Z95.0 Presence of cardiac pacemaker; Z79.899 Other long term (current) drug therapy

== ENCOUNTER → 2016-07-21 | Outpatient (CLI) | payer OTHER ==
[~2016-07-21] MED LIST changes: -ADVIN25050 INH; -BENZ100C7 PO; -BIOF500C2 PO; +CETI10TA84 PO; +GABA1CAP PO; -GFNSR600 PO; -ONE A DAY GUMMIES PO; -PRED10TA PO
[2016-07-21 12:47] LABS: CALCIUM 9.3 mg/dl (8.5-10.1)
[2016-07-21 12:48] LABS: ALKALINE PHOSPHATASE 78 U/L (45-117); ALT/SGPT 27 U/L (12-78); BLOOD UREA NITROGEN 16 mg/dl (7-18); BUN/CREATININE RATIO 18.6 (10-20); CARBON DIOXIDE 28 mmol/L (21-32); CHLORIDE 105 mmol/L (98-107); CHOLESTEROL 241 mg/dl (0-200); CREATININE 0.86 mg/dl (0.60-1.20); GLUCOSE 98 mg/dl (70-99); POTASSIUM 4.3 mmol/L (3.5-5.1); SODIUM 140 mmol/L (136-145); TRIGLYCERIDES 128 mg/dl (0-150); VERY LOW DENSITY LIPOPROT CALC 26 mg/dl
[2016-07-21 12:58] LABS: ALB/GLOB RATIO 0.9 (0.9-2); AST/SGOT 24 U/L (15-37); CHOLESTEROL/HDL RATIO 4.5; HDL CHOLESTEROL 53 mg/dl; LDL CHOLESTEROL CALCULATED 162 mg/dl; THYROID STIMULATING HORMONE 0.981 uIu/ml (0.300-4.500)
[2016-07-21 13:01] LABS: ESTIMATED AVERAGE GLUCOSE 123 mg/dl; HA1C FLAG Normal (Normal)
--- NOTE | 2016-07-27 13:17 | CODING QUERY MEDICAL NECESSITY ---
SUPPORTING DIAGNOSIS NEEDED Dr. Tripathi, A supporting diagnosis is required for the test/procedure performed on this patient in order for us to be reimbursed by the patient's insurance. Please provide a supporting diagnosis for the following test/procedure listed below next to the test name along with your signature. *If there is no additional diagnosis for this patient that would support the following test/procedure please document that below next to the test/procedure. Test(s)/Procedure(s) that require a supporting diagnosis: * 33023 GLYCATED HEMOGLOBIN DIAGNOSIS: DATE OF SERVICE: 07/21/16 Provider Signature: Date: Thank you Silvio Ramirez [facility] Information Management Once completed, please kindly fax back to [phone] For questions please call [phone]
== END | disposition home or self-care (01) ==
LOC: C.LABBFT 07:46
PROVIDERS: ATTEND Internal Medicine
DX: I44.1 Atrioventricular block, second degree (principal); R73.03 Prediabetes

== ENCOUNTER → 2016-09-15 | Outpatient (CLI) | payer OTHER ==
[2016-09-15 12:39] LABS: BLOOD UREA NITROGEN 17 mg/dl (7-18); CREATININE 0.78 mg/dl (0.60-1.20)
== END | disposition home or self-care (01) ==
LOC: C.LABBFT 07:28
PROVIDERS: ATTEND Physician Assistant
DX: H91.8X2 Other specified hearing loss, left ear (principal)

== ENCOUNTER → 2016-09-22 | Outpatient (CLI) | payer OTHER ==
[~2016-09-22] MED LIST changes: +GADAVIST IV PRN
--- NOTE | 2016-09-22 12:36 | DIAGNOSTIC IMAGING REPORT ---
BRAIN COMBO FOR IAC CLINICAL HISTORY: H91.8X2 Asymmetrical hearing loss, left PATIENT HAS LEFT GREATER hearing loss TECHNIQUE: Multiaxial MRI acquisition pre and post gadolinium enhancement COMPARISON STUDY: None FINDINGS: Diffusion-weighted images show no evidence for an acute ischemic insult. There are multiple foci of increased signal within the periventricular deep white matter regions. This is most consistent with that of chronic small vessel change of aging. A demyelinating disorder is considered less likely. No significant postcontrast enhancement. The ventricular system is midline. The internal artery canals are symmetric. No abnormal postcontrast enhancement. Sella and parasellar regions are within normal limits. IMPRESSION: 1. Moderate chronic small vessel change throughout both cerebral hemispheres. 2. No evidence for an acute ischemic insult. 3. Normal internal auditory canals. The above report was generated using voice recognition software. It may contain grammatical, syntax or spelling errors. Electronically signed by: Regan Miguel M.D. 09/22/2016 12:35 PM Dictated Date/Time: 09/22/2016 12:27 PM
== END | disposition home or self-care (01) ==
LOC: C.MRI 10:27
PROVIDERS: ATTEND Physician Assistant
DX: H91.8X2 Other specified hearing loss, left ear (principal)

== ENCOUNTER → 2017-04-13 | Outpatient (CLI) | payer OTHER ==
[~2017-04-13] MED LIST changes: +GABA100C13 PO; -GABA1CAP PO; -GADAVIST IV PRN
--- NOTE | 2017-04-13 16:28 | DIAGNOSTIC IMAGING REPORT ---
CHEST 2 VIEWS ROUTINE CLINICAL HISTORY: COUGH dyspnea COMPARISON STUDY: 05/05/2016 FINDINGS: Mild stable cardia megaly. Permanent bipolar cardiac pacemaker. The lungs are clear. Several small calcified granulomas in both hemithoraces unchanged in the prior study. Diaphragms are smooth. IMPRESSION: Chronic and postoperative change. No acute process. The above report was generated using voice recognition software. It may contain grammatical, syntax or spelling errors. Electronically signed by: Regan Miguel M.D. 04/13/2017 4:26 PM Dictated Date/Time: 04/13/2017 4:26 PM
== END | disposition home or self-care (01) ==
LOC: C.RADBC 16:02
PROVIDERS: ATTEND Physician Assistant Medical
DX: R05 Cough (principal); Z98.890 Other specified postprocedural states

== ENCOUNTER → 2017-05-03 | Outpatient (CLI) | payer OTHER ==
--- NOTE | 2017-05-04 15:13 | MAMMOGRAPHY REPORT ---
BILATERAL DIGITAL SCREENING MAMMOGRAM TOMOSYNTHESIS WITH CAD: 05/03/2017 CLINICAL HISTORY: Routine screening. TECHNIQUE: Breast tomosynthesis in addition to standard 2D mammography was performed. An additional 2D attempt was made at the left MLO view to include more pectoralis muscle within the xyihy-ti-ynee. Current study was also evaluated with a Computer Aided Detection (CAD) system. COMPARISON: Comparison is made to exams dated: 04/29/2016 mammogram, 04/29/2015 mammogram, 05/22/2016 victor m mogram, 05/22/2016 ultrasound, 04/05/2014 mammogram, and 03/30/2013 mammogram - [facility]. BREAST COMPOSITION: The tissue of both breasts is heterogeneously dense, which may obscure small mas ses. FINDINGS: A tiny portion of a metallic density projects over the pectoralis muscle on the repeat 2D l eft MLO view, compatible with a known pacemaker. There is a stable evelyne-shaped biopsy marker clip in the right breast. Fluctuating nodularity bilaterally. Stable asymmetry in the superior left breast on the MLO view. No obvious new mass, architectural distortion or cluster of microcalcifications is seen. IMPRESSION: ACR BI-RADS CATEGORY 1: NEGATIVE There is no mammographic evidence of malignancy. A 1 year screening mammogram is recommended. The pa tient will receive written notification of the results. Approximately 10% of breast cancers are not detected with mammography. A negative mammographic report should not delay biopsy if a clinically suggestive mass is present. Jie Torres M.D. ay/:05/03/2017 15:49:08 Carpenter Mold: Martine TANG(Judy)(Breonna), [facility] letter sent: Normal 1/2 BI-RADS Code: ACR BI-RADS Category 1: Negative
== END | disposition home or self-care (01) ==
LOC: C.MAMM 09:11
PROVIDERS: ATTEND Internal Medicine
DX: Z12.31 Encounter for screening mammogram for malignant neoplasm of breast (principal)